=== PATIENT | male | born 1970 | race Caucasian/White ===

== ENCOUNTER → 2018-01-24 | Outpatient (CLI) | payer OTHER ==
[~2018-01-24] MED LIST: E-Z-GAS II EFFERVESCENT PACKET (SODIUM BICARB./CITRIC ACID/SIMETHICONE) As Ordered; E-Z-HD 98% w/w 340GM SUSP BTL As Ordered; E-Z-PAQUE 96% w/w SUSP 176GM BTL As Ordered
== END ==
LOC: M RAD 10:44
DX: R13.10 Dysphagia, unspecified (principal)
CPT/HCPCS: 74220

== ENCOUNTER → 2018-07-16 | Outpatient (REF) | payer OTHER | LOC: M LAB REF 10:56 | DX: R19.4 Change in bowel habit (principal) | CPT/HCPCS: 83630 ==

== ENCOUNTER 2018-09-10 11:23 | Day surgery (SDC) | payer OTHER ==
[~2018-09-10] VITALS: Ht 182.9 cm; Wt 88.9 kg
[~2018-09-10 11:23] MED LIST changes: -E-Z-GAS II EFFERVESCENT PACKET (SODIUM BICARB./CITRIC ACID/SIMETHICONE) As Ordered; -E-Z-HD 98% w/w 340GM SUSP BTL As Ordered; -E-Z-PAQUE 96% w/w SUSP 176GM BTL As Ordered; +LIDOCAINE 2% INJ 100 MG/5 ML SDV (FOR ANES.) As Ordered ONE; +OMEP20CA3 PO; +PROPOFOL 200 MG/20 ML VIAL As Ordered ONE; +SERT50TA PO
[2018-09-10] MEDS ORDERED: NS 1,000 ML IV ONE (11:45)
--- NOTE | 2018-09-10 12:34 | ROOR ---
Patient Name: Quynh Sethi Procedure Date: 09/10/2018 12:23 PM Date of : 1970 Age: 48 Room: [facility] Gender: Male Note Status: Finalized Procedure: Upper GI endoscopy Indications: Abdominal pain in the left upper quadrant, Heartburn (both resolved on PPI for GERD) Providers: Lalo SEBASTIAN MD Referring MD: Reyna Larry Requesting Provider: Medicines: Monitored Anesthesia Care Complications: No immediate complications. Procedure: Pre-Anesthesia Assessment: - The heart rate, respiratory rate, oxygen saturations, blood pressure, adequacy of pulmonary ventilation, and response to care were monitored throughout the procedure. The Endoscope was introduced through the mouth, and advanced to the second part of duodenum. The upper GI endoscopy was accomplished without difficulty. The patient tolerated the procedure well. Findings: The esophagus was normal. The stomach was normal. The examined duodenum was normal. Impression: - Normal esophagus. - Normal stomach. - Normal examined duodenum. - No specimens collected. Recommendation: - Observe patient's clinical course. - Continue present medications. - Follow an antireflux regimen. Lalo Sebastian MD Lalo SEBASTIAN MD 09/10/2018 12:33:49 PM This report has been signed electronically. Number of Addenda: 0 Note Initiated On: 09/10/2018 12:23 PM Estimated Blood Loss: Estimated blood loss: none.
--- NOTE | 2018-09-10 12:51 | ROOR ---
Patient Name: Quynh Sethi Procedure Date: 09/10/2018 12:24 PM Date of : 1970 Age: 48 Room: [facility] Gender: Male Note Status: Finalized Procedure: Colonoscopy Indications: High risk colon cancer surveillance: Personal history of colonic polyps Providers: Lalo SEBASTIAN MD Referring MD: Reyna Larry Requesting Provider: Medicines: Monitored Anesthesia Care Complications: No immediate complications. Procedure: Pre-Anesthesia Assessment: - The heart rate, respiratory rate, oxygen saturations, blood pressure, adequacy of pulmonary ventilation, and response to care were monitored throughout the procedure. The Colonoscope was introduced through the anus and advanced to the terminal ileum, with identification of the appendiceal orifice and IC valve. The colonoscopy was performed without difficulty. The patient tolerated the procedure well. The quality of the bowel preparation was good. Findings: The perianal and digital rectal examinations were normal. Two sessile polyps were found in the sigmoid colon. The polyps were diminutive in size. These polyps were removed with a cold snare. Resection and retrieval were complete. A few small-mouthed diverticula were found in the sigmoid colon. Internal hemorrhoids were found during retroflexion. The hemorrhoids were medium-sized. The exam was otherwise without abnormality on direct and retroflexion views. Impression: - Two diminutive polyps in the sigmoid colon, removed with a cold snare. Resected and retrieved. - Mild diverticulosis in the sigmoid colon. - Moderate Internal hemorrhoids. - The colon examination was otherwise normal on direct and retroflexion views. Recommendation: - Await pathology results. - Telephone endoscopist for pathology results in 2 weeks. - If the pathology report reveals adenomatous tissue, then repeat the colonoscopy for surveillance in 5 years. - If the pathology report indicates hyperplastic polyp, then repeat colonoscopy for screening purposes in 10 years. Lalo Sebastian MD Lalo SEBASTIAN MD 09/10/2018 12:51:09 PM This report has been signed electronically. Number of Addenda: 0 Note Initiated On: 09/10/2018 12:24 PM Estimated Blood Loss: Estimated blood loss: none.
[2018-09-10 13:20] VITALS: BP 130/91
== END 2018-09-10 13:35 | disposition home or self-care (01) ==
LOC: M OPP 11:23
PROVIDERS: ATTEND Internal Medicine Gastroenterology
DX: Z86.010 Personal history of colon polyps (principal); R10.12 Left upper quadrant pain; R12 Heartburn; D12.5 Benign neoplasm of sigmoid colon; K57.30 Diverticulosis of large intestine without perforation or abscess without bleeding; K64.8 Other hemorrhoids; K21.9 Gastro-esophageal reflux disease without esophagitis; R19.4 Change in bowel habit; Z79.899 Other long term (current) drug therapy

== ENCOUNTER → 2019-04-09 | Outpatient (REF) | payer OTHER ==
[~2019-04-09] MED LIST changes: -LIDOCAINE 2% INJ 100 MG/5 ML SDV (FOR ANES.) As Ordered ONE; -OMEP20CA3 PO; +OMEP20CA4 PO; -PROPOFOL 200 MG/20 ML VIAL As Ordered ONE; +SERT-141 PO; -SERT50TA PO
== END ==
LOC: M LAB LCGH 13:44
PROVIDERS: ATTEND Family Medicine
DX: B07.9 Viral wart, unspecified (principal)

== ENCOUNTER 2024-05-13 07:52 | Day surgery (SDC) | payer OTHER ==
[~2024-05-13] VITALS: Ht 182.9 cm; Wt 88.7 kg
[~2024-05-13 07:52] MED LIST changes: +ALLO100T PO; +NS 1,000 ML IV ONE; +OMEP1CAP73 PO; -OMEP20CA4 PO; +THERTAB52 PO
[2024-05-13] MEDS ORDERED: propofoL 200 MG/20 ML VIAL As Ordered ONE (10:22)
[2024-05-13] MEDS ORDERED: LIDOCAINE 2% MDV 20ML VIAL As Ordered ONE (10:23)
[2024-05-13 10:33] VITALS: TEMP 98.1
[2024-05-13 10:50] VITALS: BP 99/60; O2SAT 96
== END 2024-05-13 10:56 | disposition home or self-care (01) ==
LOC: M OPP 07:52
PROVIDERS: ATTEND Internal Medicine Gastroenterology
DX: Z12.11 Encounter for screening for malignant neoplasm of colon (principal); K57.30 Diverticulosis of large intestine without perforation or abscess without bleeding; K64.8 Other hemorrhoids; K21.9 Gastro-esophageal reflux disease without esophagitis; Z86.0100 Personal history of colon polyps, unspecified; Z79.899 Other long term (current) drug therapy